=== PATIENT | female | born 1940 | race Caucasian/White ===

== ENCOUNTER 2016-12-29 11:49 | Emergency (ER) | payer OTHER ==
--- NOTE | ~2016-12-29 | EKG ---
[id number] NAME: HANNAH GOOD MR#: [id number] Rhythm strip reveals ectopic atrial rhythm at a rate of 35 BPM. Dictated by...
--- NOTE | ~2016-12-29 | EKG ---
PATIENT: HANNAH GOOD UNIT #: [id number] Ventricular Rate: 40 BPM Atrial Rate: 40 BPM P-R Interval: 200 ms QRS Duration: 80 ms Q-T Interval: 432 ms QTC Calculation(Bezet): 352 ms P Wingo: 235 degrees Calculated R Wingo: 93 degrees Calculated T Wingo: 84 degrees Diagnosis Line: Unusual P axis, possible ectopic atrial Diagnosis Line: bradycardia Diagnosis Line: Rightward axis Diagnosis Line: Low voltage QRS Diagnosis Line: ST elevation consider anterior injury or acute Diagnosis Line: infarct Diagnosis Line: ACUTE MS / STEMI Diagnosis Line: Abnormal ECG Diagnosis Line: When compared with ECG of 30-SEP-2009 19:30, Diagnosis Line: Ectopic atrial rhythm has replaced Sinus rhythm Diagnosis Line: Vent. rate has decreased BY 72 BPM Diagnosis Line: ST elevation has replaced ST depression in Diagnosis Line: Anterior leads Diagnosis Line: Confirmed by RENNY JONES MD ([id number]) on 12/31/2016 Diagnosis Line: 10:53:01 PM INTERPRETING MD: KAREN RICHARDSON
[~2016-12-29 11:49] MED LIST: ALPHAGAN P10 ML OP; ALPHAGAN P10 ML OS; ASPIRIN PO; CELEXA PO; COSOPT EYE DROPS5 ML OP; LIPITOR PO; LISINOPRIL PO; MULTI-VITAMIN1 TAB PO; NORCO 7.5/325 T1 TAB PO; NORVASC PO; PRED-G 1% EYE DR5 ML OD; PREVACID PO; TRAVATAN5 ML OP; TRAVATAN5 ML OS; ZEGERID40 MG/PKT PO; ZOCOR PO; ZOLOFT PO; [UNRECOGNIZED DRUG - OTHER]
== END 2016-12-29 11:50 | disposition expired ==
LOC: CED 11:49
DX: I46.9 Cardiac arrest, cause unspecified (principal); I10 Essential (primary) hypertension; E78.5 Hyperlipidemia, unspecified
CPT/HCPCS: 82947; 92950; 93005; 99285; J0171